=== PATIENT | female | born 1935 | race Caucasian/White ===

== ENCOUNTER 2018-11-07 14:38 | Inpatient (IN) | payer OTHER | END 2018-11-09 10:10 | disposition left against medical advice (07) | LOC: ER 14:38 → TELE 19:49 → TELE-WESTW 21:14 | DX: R55 Syncope and collapse (principal); J90 Pleural effusion, not elsewhere classified; E44.0 Moderate protein-calorie malnutrition; C79.51 Secondary malignant neoplasm of bone; C78.7 Secondary malignant neoplasm of liver and intrahepatic bile duct; C50.919 Malignant neoplasm of unspecified site of unspecified female breast ==